=== PATIENT | male | born 1965 | race Two or more races ===

== ENCOUNTER 2017-03-24 15:13 | Emergency (ER) | payer OTHER ==
[~2017-03-24] VITALS: Ht 180.3 cm; Wt 95.0 kg
[2017-03-24 15:24] VITALS: BP 117/89
[2017-03-24 16:22] LABS: HIV 1&2 ANTIBODY SCREEN Nonreactive (Nonreactive); HIV-1 p24 ANTIGEN Nonreactive (Nonreactive)
== END 2017-03-24 16:20 | disposition home or self-care (01) ==
LOC: ED 16:14
DX: Z20.5 Contact with and (suspected) exposure to viral hepatitis (principal); I25.2 Old myocardial infarction
CPT/HCPCS: 36415; 80074; 86703; 87521; 87899; 99284; G0435